=== PATIENT | female | born 1950 | race Caucasian/White ===

== ENCOUNTER → 2019-11-13 11:47 | Outpatient (BNVA) | payer MEDICARE, BC, SELFPAY | PROVIDERS: Visit Provider Family Medicine | DX: B19.20 Unspecified viral hepatitis C without hepatic coma (principal); K74.69 Other cirrhosis of liver; Z13.220 Encounter for screening for lipoid disorders; Z13.6 Encounter for screening for cardiovascular disorders; D69.6 Thrombocytopenia, unspecified; J44.9 Chronic obstructive pulmonary disease, unspecified; Z13.1 Encounter for screening for diabetes mellitus; I50.32 Chronic diastolic (congestive) heart failure; I11.0 Hypertensive heart disease with heart failure; I10 Essential (primary) hypertension; G45.9 Transient cerebral ischemic attack, unspecified | CPT/HCPCS: 80053; 80061; 82105; 83036; 85025 ==

== ENCOUNTER → 2020-04-25 11:13 | Outpatient (BNVA) | payer BC, SELFPAY | PROVIDERS: Visit Provider Emergency Medicine | DX: D69.6 Thrombocytopenia, unspecified (principal); G45.9 Transient cerebral ischemic attack, unspecified; R29.90 Unspecified symptoms and signs involving the nervous system | CPT/HCPCS: 80053; 80061; 83036; 83880; 85025; 85730 ==

== ENCOUNTER → 2020-04-26 10:45 | Outpatient (BNVA) | payer BC, SELFPAY | PROVIDERS: Visit Provider Emergency Medicine | DX: D69.6 Thrombocytopenia, unspecified (principal); G45.9 Transient cerebral ischemic attack, unspecified; R29.90 Unspecified symptoms and signs involving the nervous system; R73.9 Hyperglycemia, unspecified | CPT/HCPCS: 83036 ==

== ENCOUNTER 2020-05-22 06:57 | Outpatient (CLI) | payer MEDICARE, SELFPAY ==
--- NOTE | 2020-05-22 07:15 | USCV_ITS ---
Morena Valente Age: 69 Gender: F : 1950 Exam Date: 05/22/2020 07:18 Ordering Phys: Roly Prince Technologist: Mayela Patterson [place]am [place] [facility] [place]: TIA RECENTLY Risk Factors: Unknown Previous Vascular Surgery: None Right Brachial BP: / Left Brachial BP: / Right Left Velocity (cm/s) Spectral Plaque Velocity (cm/s) Spectral Plaque Syst/Diast Broadening Syst/Diast Broadening 71.80/ 13.10 Prox CCA 77.20 / 13.50 45.30/ 17.20 Mid CCA 46.90 / 14.20 47.90/ 9.60 Distal CCA 46.20 / 11.90 78.10/ 12.60 Prox ICA 59.80 / 14.00 66.40/ 15.10 Mid ICA 72.00 / 22.00 61.30/ 15.10 Distal ICA 73.90 / 17.60 89.90 ECA 75.20 1.72 ICA/CCA 1.57 Antegrade Vertebral Antegrade 29.10/ 8.50 cm/s 43.50/ 12.10 cm/s Tri Subclavian Tri 82.90 152.6 0 CONCLUSIONS Right ICA stenosis <50%. Left ICA stenosis <50%. Tortous left ICA Normal antegrade Doppler flow noted in the right vertebral artery. Normal antegrade Doppler flow noted in the left vertebral artery. Clifton Duran MD (Electronically Signed) Final Date: 22 May 2020 12:48 S
--- NOTE | 2020-05-22 08:00 | CT_ITS ---
WS: [id number] CT scan of the head, 05/22/2020 Clinical Data: stroke like symptoms earlier this week. hx of TIA Comparison: None. DLP: 993.[address] scans at [facility] use at least one of these dose optimization techniques: automat ed exposure control; mA and/or kV adjustment per patient size (includes targeted exams where dose is matched to clinical indication); or iterative reconstruction. Findings: The ventricular system is modestly enlarged without shift. No recent infarct or hemorrhage is seen. T here are no abnormal intracerebral masses. The cerebellum and brainstem are not remarkable. Bony windows of the skull and skull base show no fractures or erosions. The mastoid air cells, sports marketing internship al auditory canals, sella turcica, intraorbital contents, and paranasal sinuses are unremarkable. CT/CT head wo con* [id number] Impression: Negative CT scan of the head
== END 2020-05-22 06:58 | disposition home or self-care (01) ==
LOC: US 06:57
PROVIDERS: PCP Family Medicine; Visit Provider Emergency Medicine
DX: R29.90 Unspecified symptoms and signs involving the nervous system (principal); Z86.73 Personal history of transient ischemic attack (TIA), and cerebral infarction without residual deficits; I65.23 Occlusion and stenosis of bilateral carotid arteries
CPT/HCPCS: 70450; 93880

== ENCOUNTER → 2020-05-27 14:07 | Outpatient (BNVA) | payer MEDICARE, SELFPAY | PROVIDERS: PCP Family Medicine; Visit Provider Family Medicine | DX: I10 Essential (primary) hypertension (principal); I50.32 Chronic diastolic (congestive) heart failure; D69.6 Thrombocytopenia, unspecified; K74.69 Other cirrhosis of liver; B19.20 Unspecified viral hepatitis C without hepatic coma; D70.8 Other neutropenia; G45.9 Transient cerebral ischemic attack, unspecified; L43.8 Other lichen planus | CPT/HCPCS: 85007; 85027 ==

== ENCOUNTER → 2020-05-28 14:07 | Outpatient (BNVA) | payer MEDICARE, SELFPAY | PROVIDERS: PCP Family Medicine; Visit Provider Family Medicine | DX: I50.32 Chronic diastolic (congestive) heart failure (principal); D69.6 Thrombocytopenia, unspecified; D72.819 Decreased white blood cell count, unspecified; K74.69 Other cirrhosis of liver; B19.20 Unspecified viral hepatitis C without hepatic coma; D70.8 Other neutropenia; G45.9 Transient cerebral ischemic attack, unspecified; L43.8 Other lichen planus; I10 Essential (primary) hypertension | CPT/HCPCS: 80500 ==

== ENCOUNTER 2020-06-26 09:08 | Outpatient (CLI) | payer MEDICARE, SELFPAY ==
[2020-06-26 09:51] LABS: Basophils % 0.7 %; Eosinophils # 0.2 10^3/uL (0.0-0.8); Eosinophils % 5.3 %; Hematocrit 37.6 % (37.0-47.0); Lymphocytes # 1.1 10^3/uL (0.8-4.8); Lymphocytes % 37.9 %; Mean Corpuscular HGB Conc 34.6 g/dL (30.0-36.0); Mean Corpuscular Hemoglobin 33.1 pg (28.0-34.0); Mean Corpuscular Volume 95.7 fL (81-99); Mean Platelet Volume 9.6 fL (7.4-10.4); Monocytes # 0.2 10^3/uL (0.2-0.9); Monocytes % 7.6 %; Neutrophils # 1.46 10^3/uL (1.8-7.7); Neutrophils % 48.5 %; Nucleated Red Blood Cells % 0 %; Platelet Count 55 10^3/cmm (130-400); Red Blood Count 3.93 10^6/uL (4.1-5.3); Red Cell Distribution Width 13.3 % (12.1-15.1)
--- NOTE | 2020-06-26 13:42 | ONC CON_ITS ---
Dr. Phillips New Patient Note Patient: Morena Valente Unit #: [id number]: 1950 Dicatated By: Gilbert Phillips M.D.Date of Visit: Jun 26, 2020 Onc MED New Patient/Consult Referring Physician: Yocasta Davila Dr., M.D. History of Present Illness: 'Ms. Morena Valente, is a 69-year-old female with a history of hepatitis C, as per patient she was diagnosed at age 15 probably due to IV drug exposure or other high risk, initially, as per patient she was monitored until in [address] Blanchard at that time she was treated for hepatitis C, as per patient her follow-up lab confirmed that she was clear of hepatitis C. As per patient she was also diagnosed with liver cirrhosis several years ago and she was also told about low blood counts many years ago but recently on May 27, 2020 for follow-up CBC showed white blood count 3.3 hemoglobin 12.9 hematocrit 38.5 platelets 64,000, she was told now her white blood count is also dropping and thus ,she was sent to hematology for evaluation. Patient denies any nosebleed or gum bleed, denies any hemoptysis or hematemesis, denies any melena or hematochezia, denies any dark-colored stools, denies any petechia or ecchymosis. Patient denies any excessive alcohol use. Denies any new medication. Denies any night sweats denies any weight loss denies any recurrent fever. As per patient she underwent EGD and colonoscopy in 2015, done by Dr. Blanchard and she was told it was unremarkable. Patient has history of splenomegaly, as per follow-up sonogram done on July 23, 2019 which showed patient had cirrhotic liver and splenomegaly, likely due to hepatic cirrhosis. Past Medical History: Ms. Valente's medical history consists of chronic liver failure, cirrhosis, congestive heart failure, depression, hepatitis C, hypertension, liver lesion, and osteoarthritis. Past Surgical History: Ms. Valente's surgical/procedural history consists of cataract excision, left knee replacement, hysterectomy in 1985, and tonsillectomy in 1959. Medications: Aspirin Adult Low Dose 1 Tablet (of 81 mg) Tablet, enteric coated Oral daily, [facility] Fish Oil 1 - 2 Capsule (of 1000 mg) Oral q 7 days, Eye Health 1 - 2 Capsule Oral q 7 to 14 days PRN, Furosemide 1 Tablet (of 20 mg) Oral daily PRN, hydroCHLOROthiazide 1 Tablet (of 25 mg) Oral daily, Multivitamin 1 Tablet Oral q 7 days, Potassium Chloride ER 1 Tablet (of 10 meq) Tablet, controlled release Oral daily, Vitamin C 1 - 2 Capsule (of 500 mg) Oral q 7 to 14 days PRN, Vitamin D3 1 - 2 Tablet Oral q 7 to 14 days PRN Allergies: Morphine Sulfate Social History: Ms. Valente is . Ms. Valente has never smoked. She is an active drinker. pt states she has a glass of wine in the evening 3 to 4 times a week and one to two oz of tequlia a week. Family History: Ms. Valente's mother at age 75: heart attack. Ms. Valente's father at age 75: heart disease. Ms. Valente has 1 sister who is : hemorrhage. Review Of Symptoms: Review of Systems is not available for this patient. Vital Signs: Performed on Jun 26, 2020 11:06: 0, 33.33 (HIGH), 1.96 sq.m, 64.50 in, 97 %, 77 /min, 24 /min, 148/65 mm(hg) (HIGH), 98.1 F (LOW), and 197.2 lbs (HIGH). Performance Status: 0 - Fully active, able to carry on all predisease activities without restrictions. (ECOG) Physical Examination: ENMT - No mouth sores, no thrush, no jaundice, Respiratory - Lungs are clear to auscultation, Cardiovascular - Regular rate and rhythm of heart, Abdomen - Soft, bowel sounds present, obese, Extremities - No visible edema or petechiae. 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 Or medications. Or autoimmune Hepatic cirrhosis/hepatitis C, was treated for hepatitis C in 2016 Splenomegaly as per sonogram done on July 23, 2019 Congestive heart failure Oral lichen planus Primary osteoarthritis of right knee status post knee replacement Plan: Discussed with patient regarding her labs from today showed white blood count 3000, hemoglobin 13 hematocrit 37.6 platelets 55,000 ANC 1460 and etiology of bicytopenia, could be multifactorial including but not limited to splenic sequestration as patient has history of splenomegaly due to hepatic cirrhosis other possibility could be considering her age underlying myelodysplasia or medication or reactivation of hepatitis C or autoimmune disorder. Today's CBC shows no significant change when compared with labs from May 27, 2020 although some drop in her platelet count white blood cell, but we will continue to monitor, if there is a further drop, will consider, B12 level, folate and copper level as deficiency of any them can cause cytopenias. If normal,Will consider bone marrow evaluation to rule out underlying myelodysplasia, if bone marrow response is appropriate, will also request Dr. Blanchard to evaluate her for hepatitis C reactivation as that can also cause worsening of bicytopenia. Patient return to clinic in 1 month with CBC and follow-up abdominal sonogram with special attention to spleen size. Patient was advised in case she has any episode of bleeding she need to call us and she was also advised not to take aspirin like meds or NSAIDs and avoid trauma. Signed By: Gilbert Phillips M.D. <<Signature on File>>
== END 2020-06-26 09:09 | disposition home or self-care (01) ==
LOC: ONCMED 09:13
PROVIDERS: PCP Family Medicine; Visit Provider Internal Medicine Hematology & Oncology
DX: D75.89 Other specified diseases of blood and blood-forming organs (principal); K74.60 Unspecified cirrhosis of liver; Z86.19 Personal history of other infectious and parasitic diseases; I50.9 Heart failure, unspecified; L43.8 Other lichen planus; M17.11 Unilateral primary osteoarthritis, right knee; Z96.651 Presence of right artificial knee joint
CPT/HCPCS: 36415; 85025; 99203

== ENCOUNTER 2020-07-29 09:57 | Outpatient (CLI) | payer MEDICARE, SELFPAY ==
--- NOTE | 2020-07-29 10:01 | US_ITS ---
WS: [id number] ULTRASOUND ABDOMEN CLINICAL INFORMATION: THROMBOCYOPENA/LEUKOPENIA COMPARISON: None. FINDINGS: Exam somewhat limited by bowel gas. Liver Size: Normal. Craniocaudal length: 11.5 cm. Echogenicity: Coarse Surface nodularity: Lobulated Mass (size and location): None. Bile ducts Intrahepatic ducts: Normal. Common bile duct diameter: 0.5 cm. Gallbladder Normal. Gallstones: None. Gallbladder sludge: None. Gallbladder wall thickening: None. Pericholecystic fluid: None. Sonographic Yin sign: Absent. Pancreas Normal as visualized. Spleen Splenomegaly: Enlarged Craniocaudal length: 17.9 cm. Right kidney: Normal. Hydronephrosis: None. Size: 9.6 cm x 4.9 cm x 4.8 cm Left kidney: Normal. Hydronephrosis: None. Size: 11.5 cm x 4.1 cm x 3.8 cm. Abdominal aorta and IVC Visualized portions are normal. Ascites: None. US/US abdomen complete* [id number] IMPRESSION: 1. Cirrhotic configuration to the liver with coarse echotexture. Prominent spl enomegaly. 2. Gastrosplenic varices. 3. Normal gallbladder and common bile duct. 4. No hydronephrosis in either kidney.
== END 2020-07-29 09:58 | disposition home or self-care (01) ==
LOC: US 10:00 → ONCMED 11:14
PROVIDERS: PCP Family Medicine; Visit Provider Internal Medicine Hematology & Oncology
DX: D69.6 Thrombocytopenia, unspecified (principal); D72.819 Decreased white blood cell count, unspecified; R16.1 Splenomegaly, not elsewhere classified; I86.4 Gastric varices
CPT/HCPCS: 76700

== ENCOUNTER 2020-08-05 05:48 | Outpatient (CLI) | payer MEDICARE, SELFPAY ==
[2020-08-05 13:20] LABS: Eosinophils # 0.2 10^3/uL (0.0-0.8); Eosinophils % 6.1 %; Hematocrit 38.3 % (37.0-47.0); Hemoglobin 13.3 g/dL (11.5-15.3); Lymphocytes # 1.1 10^3/uL (0.8-4.8); Lymphocytes % 38.2 %; Mean Corpuscular HGB Conc 34.7 g/dL (30.0-36.0); Mean Corpuscular Hemoglobin 32.6 pg (28.0-34.0); Mean Corpuscular Volume 93.9 fL (81-99); Mean Platelet Volume 9.8 fL (7.4-10.4); Monocytes # 0.3 10^3/uL (0.2-0.9); Monocytes % 8.9 %; Neutrophils # 1.34 10^3/uL (1.8-7.7); Neutrophils % 45.8 %; Nucleated Red Blood Cells % 0 %; Platelet Count 53 10^3/cmm (130-400); Red Blood Count 4.08 10^6/uL (4.1-5.3); White Blood Count 2.9 10^3/uL (4.0-10.0)
== END 2020-08-05 05:49 | disposition home or self-care (01) ==
LOC: ONCMED 05:50
PROVIDERS: PCP Family Medicine; Visit Provider Internal Medicine Hematology & Oncology
DX: D75.89 Other specified diseases of blood and blood-forming organs (principal)
CPT/HCPCS: 36415; 85025

== ENCOUNTER 2020-08-08 05:34 | Outpatient (CLI) | payer MEDICARE, SELFPAY ==
--- NOTE | 2020-08-08 09:54 | ONC FU_ITS ---
Dr. Phillips follow up note Patient: Morena Valente Unit #: [id number]: 1950 Dicatated By: Gilbert Phillips M.D.Date of Visit:Aug 08, 2020 Onc Med Follow-up/Prog Note History of Present Illness: 'Ms. Morena Valente, is a 69-year-old female with a history of hepatitis C, as per patient she was diagnosed at age 15 probably due to IV drug exposure or other high risk, initially, as per patient she was monitored until in [address] Blanchard at that time she was treated for hepatitis C, as per patient her follow-up lab confirmed that she was clear of hepatitis C. As per patient she was also diagnosed with liver cirrhosis several years ago and she was also told about low blood counts many years ago but recently on May 27, 2020 for follow-up CBC showed white blood count 3.3 hemoglobin 12.9 hematocrit 38.5 platelets 64,000, she was told now her white blood count is also dropping and thus ,she was sent to hematology for evaluation. Patient denies any nosebleed or gum bleed, denies any hemoptysis or hematemesis, denies any melena or hematochezia, denies any dark-colored stools, denies any petechia or ecchymosis. Patient denies any excessive alcohol use. Denies any new medication. Denies any night sweats denies any weight loss denies any recurrent fever. As per patient she underwent EGD and colonoscopy in 2015, done by Dr. Blanchard and she was told it was unremarkable. Patient has history of splenomegaly, as per follow-up sonogram done on July 23, 2019 which showed patient had cirrhotic liver and splenomegaly, likely due to hepatic cirrhosis. Abdominal sonogram done on July 29, 2020 showed cirrhotic configuration to the liver with coarse echotexture. Splenomegaly size 17.9 cm. Gastrosplenic varices. Came for follow-up, denies any specific complaints, no fever chills, no nausea or vomiting, no diarrhea or constipation, no hemoptysis or hematemesis, no melena or hematochezia, no jaundice, no abdominal pain or fullness, no petechia or ecchymosis, no sore throat or dysuria. As per patient she called Dr. Blanchard's office and she was told that her hepatitis C is cured and no further testing is needed. Medications: Aspirin Adult Low Dose 1 Tablet (of 81 mg) Tablet, enteric coated Oral daily, [facility] Fish Oil 1 - 2 Capsule (of 1000 mg) Oral q 7 days, Eye Health 1 - 2 Capsule Oral q 7 to 14 days PRN, Furosemide 1 Tablet (of 20 mg) Oral daily PRN, hydroCHLOROthiazide 1 Tablet (of 25 mg) Oral daily, Multivitamin 1 Tablet Oral q 7 days, Potassium Chloride ER 1 Tablet (of 10 meq) Tablet, controlled release Oral daily, Vitamin C 1 - 2 Capsule (of 500 mg) Oral q 7 to 14 days PRN, Vitamin D3 1 - 2 Tablet Oral q 7 to 14 days PRN Allergies: Morphine Sulfate Review of Systems: Constitutional - Appetite is good and weight is stable. No fever, night sweats, or hot flashes. Energy is fair, ENMT - No sinus congestion/drainage. Positive for mouth sores. No sore throat or difficulty swallowing, Hematologic/Lymphatic - No abnormal bruising or bleeding, Respiratory - No shortness of breath. No cough. No pleuritic pain or hemoptysis, Cardiovascular - No angina pain. Positive for palpitations, Gastrointestinal - No nausea or vomiting. No heartburn or acid reflux. No diarrhea or constipation. No blood in the stool or black stools, Genitourinary (F) - No dysuria or hematuria. Positive for urinary frequency. No urgency or incontinence, Musculoskeletal - No joint or bone pain, Integumentary - , Neurologic - No headache or dizziness. No numbness or tingling. No other focal neurologic symptoms, Psychiatric - Positive for anxiety or depression. Postive for insomnia. Vital Signs: Performed on Aug 08, 2020 08:24 Height - 64.50 in Weight - 192.4 lbs (LOW) BSA - 1.93 sq.m BMI - 32.52 (HIGH) Temperature - 97.7 F (LOW) Pulse - 74 /min Respiration - 18 /min BP - 147/81 mm(hg) (HIGH) O2 Sat - 96 % Pain - 0 Performance Status: 1 - No physically strenuous activity, but ambulatory and able to carry out light or sedentary work (e.g. office work, light house work). (ECOG) Physical Examination: ENMT - No mouth sores, no thrush, no jaundice, Respiratory - Lungs are clear to auscultation, Cardiovascular - Regular rate and rhythm of heart, Abdomen - Soft, bowel sounds present, Extremities - No visible edema or rash. 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 Or medications. Or autoimmune Hepatic cirrhosis/hepatitis C, was treated for hepatitis C in 2016 Splenomegaly as per sonogram done on July 23, 2019, Repeat ultrasound abdomen done on July 29, 2020 confirmed cirrhotic configuration to the liver and splenomegaly, size 17.9 cm Congestive heart failure Oral lichen planus Primary osteoarthritis of right knee status post knee replacement Plan: Discussed with patient regarding her labs white blood count 2.9 hemoglobin 13.3 hematocrit 38.3 platelets 53,000 compared to 55,000 on June 26, 2020 and follow-up abdominal sonogram reconfirmed splenomegaly and cirrhotic liver Clinically, patient is doing well with no signs symptom suggestive of recurrent infections or bleeding her follow-up labs shows hemoglobin normal range but persistent mild/moderate bicytopenia e.g. leukopenia and thrombocytopenia but stable. And etiology of persistent bicytopenia probably due to splenic sequestration due to splenomegaly due to portal hypertension due to hepatic cirrhosis but considering her age underlying myelodysplasia cannot be ruled out. We will continue to monitor her blood counts and if there is a worsening, may consider bone marrow evaluation to rule out concomitant presence of MDS. As her sonogram showed patient had hepatic cirrhosis and gastrosplenic varices and patient has never seen pump press operator, so, at patient request, we will refer her to pump press operator at [facility] in [place] in the meantime we will consider hepatitis panel to rule out reactivation of hepatitis C although less likely and also check alpha-fetoprotein and hepatitis C load and then she will return to clinic in 2 months with CBC Patient was told in case she has any evidence of gross bleeding or recurrent infections she need to call us otherwise we will see her as scheduled Signed By: Gilbert Phillips M.D. <<Signature on File>>
[2020-08-08 13:22] LABS: Hepatitis A Antibody IgM Non-Reactive (Nonreactive); Hepatitis B Core AB, Total Reactive (Nonreactive); Hepatitis B Surface AB 465.7 (0-8.5); Hepatitis B Surface Antigen Non-Reactive (Nonreactive); Hepatitis C Virus Antibody Reactive (Nonreactive)
[2020-08-08 17:18] LABS: Tumor Marker Alpha Fetoprotein 4.2 ng/mL (0-8.3)
[2020-08-11 13:53] LABS: HEP C RNA Viral Load Quant <1.18 NOT DETECTED Log IU/mL (NOT DETECTED); HEP C RNA Viral Load Quant <15 NOT DETECTED IU/mL (NOT DETECTED)
== END 2020-08-08 05:35 | disposition home or self-care (01) ==
LOC: ONCMED 05:39
PROVIDERS: PCP Family Medicine; Visit Provider Internal Medicine Hematology & Oncology
DX: D75.89 Other specified diseases of blood and blood-forming organs (principal); Z11.59 Encounter for screening for other viral diseases; Z86.19 Personal history of other infectious and parasitic diseases; K74.69 Other cirrhosis of liver; R16.1 Splenomegaly, not elsewhere classified; I50.9 Heart failure, unspecified; L43.9 Lichen planus, unspecified; M17.11 Unilateral primary osteoarthritis, right knee; I86.4 Gastric varices; Z96.651 Presence of right artificial knee joint
CPT/HCPCS: 36415; 82105; 86705; 86706; 86709; 86803; 87340; 87522; 99214

== ENCOUNTER 2020-11-05 09:18 | Outpatient (CLI) | payer MEDICARE, SELFPAY ==
[2020-11-05 09:54] LABS: Basophils % 0.6 %; Eosinophils # 0.2 10^3/uL (0.0-0.8); Eosinophils % 5.7 %; Hemoglobin 12.3 g/dL (11.5-15.3); Lymphocytes # 0.9 10^3/uL (0.8-4.8); Mean Corpuscular HGB Conc 34.2 g/dL (30.0-36.0); Mean Corpuscular Hemoglobin 32.8 pg (28.0-34.0); Mean Platelet Volume 9.4 fL (7.4-10.4); Monocytes # 0.4 10^3/uL (0.2-0.9); Monocytes % 10.5 %; Neutrophils # 1.81 10^3/uL (1.8-7.7); Neutrophils % 54.6 %; Nucleated Red Blood Cells % 0 %; Platelet Count 52 10^3/cmm (130-400); Red Blood Count 3.75 10^6/uL (4.1-5.3); Red Cell Distribution Width 14.5 % (12.1-15.1); White Blood Count 3.3 10^3/uL (4.0-10.0)
[2020-11-05 10:28] LABS: Alanine Aminotransferase 20 U/L (0-33); Albumin Level 2.9 g/dL (3.5-5.2); Alkaline Phosphatase 164 IU/L (35-105); Anion Gap 8.8 (5-19); Aspartate Amino Transferase 57 U/L (0-32); Blood Urea Nitrogen 10 mg/dL (8-23); Calcium 8.3 mg/dL (8.5-10.5); Carbon Dioxide 26 mmol/L (22-29); Chloride 105 mmol/L (98-107); Globulin 3.3 g/dL (1.3-4.6); Glucose 86 mg/dL (65-115); Osmolality Calculated 280 mOsm/kg (285-295); Potassium 3.8 mmol/L (3.5-5.1); Sodium 136 mmol/L (136-145); Total Bilirubin 2.7 mg/dL (0.15-1.2); Total Protein 6.2 g/dL (6.6-8.7)
--- NOTE | 2020-11-16 20:42 | ONC FU_ITS ---
[facility] Patient Note Patient: Morena Valente Unit #: [id number]: 1950 Dictated By: Rosemarie FloresDate of Visit: Nov 05, 2020 Onc MED Follow-Up/Prog Note Chief Complaint: Low blood counts History of Present Illness: 'Ms. Morena Valente, is a 69-year-old female with a history of hepatitis C, as per patient she was diagnosed at age 15 probably due to IV drug exposure or other high risk, initially, as per patient she was monitored until in [address] Blanchard at that time she was treated for hepatitis C, as per patient her follow-up lab confirmed that she was clear of hepatitis C. As per patient she was also diagnosed with liver cirrhosis several years ago and she was also told about low blood counts many years ago but recently on May 27, 2020 for follow-up CBC showed white blood count 3.3 hemoglobin 12.9 hematocrit 38.5 platelets 64,000, she was told now her white blood count is also dropping and thus ,she was sent to hematology for evaluation. Patient denies any nosebleed or gum bleed, denies any hemoptysis or hematemesis, denies any melena or hematochezia, denies any dark-colored stools, denies any petechia or ecchymosis. Patient denies any excessive alcohol use. Denies any new medication. Denies any night sweats denies any weight loss denies any recurrent fever. As per patient she underwent EGD and colonoscopy in 2015, done by Dr. Blanchard and she was told it was unremarkable. Patient has history of splenomegaly, as per follow-up sonogram done on July 23, 2019 which showed patient had cirrhotic liver and splenomegaly, likely due to hepatic cirrhosis. Abdominal sonogram done on July 29, 2020 showed cirrhotic configuration to the liver with coarse echotexture. Splenomegaly size 17.9 cm. Gastrosplenic varices. As per patient she called Dr. Blanchard's office and she was told that her hepatitis C is cured and no further testing is needed. Mrs Valente has been following with Dr Phillips regarding low blood counts , which reviewing her flowsheet has been neutropenia and thrombocytopenia. She has not had anemia on her flowsheet as far back as June 26, 2020. Her platelet count remained stable in the 52-55,000 range. Her neutropenia has been 13 100-18 100 today. She has not had any signs of infection. She denies any fever or chills. She has not tested Covid positive nor has she had any Covid vaccine. She states that she had symptoms 6 to 8 weeks ago that could have been suggestive of Covid states states that she was basically as severe headache that lasted a couple days and then resolved on its own. She states she was tired but did not have a cough or fever. Her only concern today is that she has had some intermittent left quadrant pain in my spleen area . She states it swells sometimes and then goes away. Currently it is in proved. She denies any bruising or bleeding. She denies any bowel or bladder problems. She denies any neuropathy. She denies any jaundice. She states she is eating good and overall feels pretty good except intermittent spleen pain . Her ECOG is 1. Past Medical History: Chronic liver failure Cirrhosis Congestive heart failure Depression Hepatitis C Hypertension Liver lesion Osteoarthritis Past Surgical History: Cataract excision Left knee replacement Hysterectomy in 1985 Tonsillectomy in 1959 Allergies: Morphine Sulfate Medications: Aspirin Adult Low Dose 1 Tablet (of 81 mg) Tablet, enteric coated Oral daily [facility] Fish Oil 1 - 2 Capsule (of 1000 mg) Oral q 7 days Eye Health 1 - 2 Capsule Oral q 7 to 14 days PRN Furosemide 1 Tablet (of 20 mg) Oral daily PRN hydroCHLOROthiazide 1 Tablet (of 25 mg) Oral daily Multivitamin 1 Tablet Oral q 7 days Potassium Chloride ER 1 Tablet (of 10 meq) Tablet, controlled release Oral daily Vitamin C 1 - 2 Capsule (of 500 mg) Oral q 7 to 14 days PRN Vitamin D3 1 - 2 Tablet Oral q 7 to 14 days PRN Family History: Ms. Valente's mother at age 75: heart attack. Ms. Valente's father at age 75: heart disease. Ms. Valente has 1 sister who is : hemorrhage. Social History: Ms. Valente is . Ms. Valente has never smoked. She is an active drinker. pt states she has a glass of wine in the evening 3 to 4 times a week and one to two oz of tequlia a week. Review Of Symptoms: Constitutional Denies fevers, chills, night sweats, excessive fatigue or weight loss. Eyes Denies significant visual changes. No diplopia. No amaurosis. ENMT Denies changes in hearing, sore throat, mouth sores, difficulty or changes in swallowing ability, and/or sinus drainage. Hematologic/Lymphatic Denies easy bruising or bleeding. The patient denies any tender or palpable lymph nodes. Breasts Respiratory Denies dyspnea on exertion, chest pain, cough or hemoptysis. Denies orthopnea. Cardiovascular Denies anginal chest pain, palpitations or orthopnea. Gastrointestinal Denies nausea, vomiting, diarrhea, GI bleeding, or constipation. Denies change in bowel habits and/or stool color, no heartburn or early satiety. Genitourinary (F) No hematuria, hesitancy, incontinence, vaginal bleeding, discharge or other problems with urination. Musculoskeletal Denies joint pain, swelling or redness. No decreased range of motion. Integumentary Denies chronic rashes, inflammation, ulcerations or skin changes. Neurologic Denies headache, blurred vision, and no areas of focal weakness or numbness. Normal gait. No sensory problems. Psychiatric Denies insomnia, depression, eufemia or mood swings. Vital Signs: Performed on Nov 05, 2020 11:27 Height - 64.50 in Weight - 195.6 lbs (HIGH) BSA - 1.95 sq.m BMI - 33.06 (HIGH) Temperature - 95.3 F (LOW) Pulse - 77 /min Respiration - 18 /min BP - 146/78 mm(hg) (HIGH) O2 Sat - 97 % Pain - 7 Fatigue - 0,1 - No physically strenuous activity, but ambulatory and able to carry out light or sedentary work (e.g. office work, light house work). (ECOG) Physical Examination: Constitutional Alert, oriented, no acute distress. Skin pink, warm and dry. Head Normocephalic; atraumatic. Eyes Conjunctivae and sclerae are clear and without icterus. Pupils are reactive and equal. Neck Supple without masses or thyromegaly. No jugular venous distension. Hematologic/Lymphatic No petechiae or purpura. No tender or palpable lymph nodes in the cervical or supraclavicular areas. Respiratory Lungs are clear to auscultation without rhonchi or wheezing. Cardiovascular Regular rate and rhythm of heart without murmurs,clicks, gallops or rubs. Abdomen Non-tender, non-distended, no masses or ascites. Good bowel sounds noted in all quads. No guarding or rebound tenderness. No pulsatile masses. Slight tenderness in left upper quad- but no worse than normal per patient. Back/Spine Non-tender to palpation. Extremities No visible deformities, no cyanosis, clubbing or edema. Musculoskeletal No tenderness or swelling, normal range of motion without obvious weakness. Integumentary No rashes or lesions. Neurologic No sensory or motor deficits, normal cerebellar function, normal gait. Psychiatric Alert and oriented times three. Coherent speech. Verbalizes understanding of our discussions today. Laboratory:Test performed on Nov 05, 2020 09:32 Sodium 136 mmol/L Potassium 3.8 mmol/L Chloride 105 mmol/L CO2 26 mmol/L Anion Gap 8.8 BUN 10 mg/dL Creatinine 0.4 mg/dL Cr Clearance (Est) 178.06 mL/min Glucose 86 mg/dL Osmolality - Calculated 280 mOsm/kg Calcium 8.3 mg/dL Protein, Total 6.2 g/dL Albumin 2.9 g/dL Globulin 3.3 g/dL Bilirubin, Total 2.7 mg/dL ALT (SGPT) 20 U/L AST (SGOT) 57 U/L Alkaline Phosphatase 164 IU/L WBC 3.3 10 3/uL RBC 3.75 10 6/uL HGB 12.3 g/dL HCT 36.0 % MCV 96.0 fL MCH 32.8 pg MCHC 34.2 g/dL RDW 14.5 % Platelet Count 52 10 3/cmm MPV 9.4 fL Neutrophils 1.81 10 3/uL Lymphocytes 0.9 10 3/uL Monocytes 0.4 10 3/uL Eosinophils 0.2 10 3/uL Basophils 0.0 10 3/uL Neutrophil % 54.6 % Lymphocyte % 28.0 % Monocyte % 10.5 % Eosinophil % 5.7 % Basophils % 0.6 % NRBC % 0 % Test performed on Aug 08, 2020 09:45 AFP 4.2 ng/mL Hepatitis A Ab, IgM Non-Reactive Hepatitis B Core Ab, Total Reactive Hepatitis B Surf Antigen Non-Reactive Hepatitis B Surface Ab 465.7 STATUS of IMMUINITY Inconsistent with Immunity 0.0 - 8.5 mIU/mL Consistent with Immunity >8.5 mIU/mL Hepatitis C Ab Reactive Test performed on Jul 29, 2020 00:00 Manual Diff NO SPECIMEN OF [id number] Impression: Bicytopenia, etiology could be multifactorial, but most likely due to splenic sequestration, patient has splenomegaly due to hepatic cirrhosis due to hepatitis C, other possibility could be reactivation of hepatitis C or, considering her age underlying myelodysplasia in addition to splenic sequestration cannot be ruled out. Or medications. Or autoimmune Hepatic cirrhosis/hepatitis C, was treated for hepatitis C in 2016 Splenomegaly as per sonogram done on July 23, 2019, Repeat ultrasound abdomen done on July 29, 2020 confirmed cirrhotic configuration to the liver and splenomegaly, size 17.9 cm Congestive heart failure Oral lichen planus Primary osteoarthritis of right knee status post knee replacement Plan: PROBLEMS ADDRESSED TODAY 1. Neutropenia and thrombocytopenia A. Today's labs reviewed in detail discussed with Mrs. Valente and a copy was given to her. WBC 3.3, hemoglobin 12.3, platelets 52,000 ANC 1810. Potassium 3.8 creatinine 0.4 random glucose 86. B. Per Dr Phillips's [facility] office note etiology of persistent bicytopenia probably due to splenic sequestration due to splenomegaly due to portal hypertension due to hepatic cirrhosis but considering her age underlying myelodysplasia cannot be ruled out. We will continue to monitor her blood counts and if there is a worsening, may consider bone marrow evaluation to rule out concomitant presence of MDS . 2. History of Hepatitis C A. CMP from today reports: total bilirubin 2.7 which is chronically elevated for her ALT is 20 AST is 57 alk phos is 164. Her last AFP on 08/08/2020 was 4.2. She did have a hepatitis panel on 08/08/2020 which showed nonreactive for hep B surface antigen and hep B surface antibody was reported at 465.7. Hep BC total shows reactive and hep C AB is reactive. She did not have analysis of the PCR quantitative. B. Dr Caraballo's last office note reports As her sonogram showed patient had hepatic cirrhosis and gastrosplenic varices and patient has never seen territory service representative so, at patient request, we will refer her to territory service representative at [facility] in [place]. In the meantime we will consider hepatitis panel to rule out reactivation of hepatitis C although less likely and also check alpha-fetoprotein and hepatitis C load and then she will return to clinic in 2 months with CBC Patient was told in case she has any evidence of gross bleeding or recurrent infections she need to call us otherwise we will see her as scheduled . Mrs Valente has not been evaluated with up her pathologist as she states there is not 1 in [place] and would require to go to [facility] and she is not doing at this time. 3. Follow-up plan A. we will plan to see Mrs. Valente back in 1 month with CBC CMP for monitoring of her neutropenia and thrombocytopenia. B. She has been encouraged to contact us in interim should she have any evidence of jaundice or any worsening of her abdominal pain. She is also advised to present to the emergency room for further follow-up if she does have problems. C. She was encouraged to have follow-up with Dr. Blanchard also she has questions regarding her hepatitis as she does not want to pursue referral to territory service representative at this time. Signed By: Rosemarie Flores-MIKAYLA, AOERICKAP Gilbert Phillips MD <<Signature on File>>
== END 2020-11-05 09:19 | disposition home or self-care (01) ==
LOC: ONCMED 09:21
PROVIDERS: PCP Family Medicine; Visit Provider Nurse Practitioner
DX: D70.9 Neutropenia, unspecified (principal); D69.6 Thrombocytopenia, unspecified; K74.60 Unspecified cirrhosis of liver; R16.1 Splenomegaly, not elsewhere classified; I86.4 Gastric varices; Z86.19 Personal history of other infectious and parasitic diseases
CPT/HCPCS: 36415; 80053; 85025; 99214

== ENCOUNTER 2020-12-15 11:47 | Outpatient (CLI) | payer MEDICARE, SELFPAY ==
[2020-12-15 12:35] LABS: Basophils % 0.4 %; Eosinophils # 0.1 10^3/uL (0.0-0.8); Eosinophils % 1.4 %; Hematocrit 36.8 % (37.0-47.0); Hemoglobin 12.5 g/dL (11.5-15.3); Lymphocytes % 12.8 %; Mean Platelet Volume 9.1 fL (7.4-10.4); Monocytes % 12.3 %; Neutrophils # 5.54 10^3/uL (1.8-7.7); Neutrophils % 71.8 %; Nucleated Red Blood Cells % 0 %; Platelet Count 81 10^3/cmm (130-400); Red Blood Count 3.68 10^6/uL (4.1-5.3); Red Cell Distribution Width 17.2 % (12.1-15.1); White Blood Count 7.7 10^3/uL (4.0-10.0)
[2020-12-15 13:04] LABS: Alanine Aminotransferase 53 U/L (0-33); Albumin Level 2.4 g/dL (3.5-5.2); Alkaline Phosphatase 210 IU/L (35-105); Anion Gap 11.5 (5-19); Aspartate Amino Transferase 192 U/L (0-32); Blood Urea Nitrogen 21 mg/dL (8-23); Calcium 8.4 mg/dL (8.5-10.5); Carbon Dioxide 28 mmol/L (22-29); Chloride 95 mmol/L (98-107); Glucose 125 mg/dL (65-115); Osmolality Calculated 276 mOsm/kg (285-295); Potassium 3.5 mmol/L (3.5-5.1); Sodium 131 mmol/L (136-145); Total Protein 5.4 g/dL (6.6-8.7)
[2020-12-15 13:17] LABS: Total Bilirubin 25.4 mg/dL (0.15-1.2)
--- NOTE | 2020-12-15 17:46 | ONC FU_ITS ---
Dr. Phillips follow up note Patient: Morena Valente Unit #: [id number]: 1950 Dicatated By: Gilbert Phillips M.D.Date of Visit:Dec 15, 2020 Onc Med Follow-up/Prog Note History of Present Illness: 'Ms. Morena Valente, is a 70-year-old female with a history of hepatitis C, as per patient she was diagnosed at age 15 probably due to IV drug exposure or other high risk, initially, as per patient she was monitored until in [address] Blanchard at that time she was treated for hepatitis C, as per patient her follow-up lab confirmed that she was clear of hepatitis C. As per patient she was also diagnosed with liver cirrhosis several years ago and she was also told about low blood counts many years ago but recently on May 27, 2020 for follow-up CBC showed white blood count 3.3 hemoglobin 12.9 hematocrit 38.5 platelets 64,000, she was told now her white blood count is also dropping and thus ,she was sent to hematology for evaluation. Patient denies any nosebleed or gum bleed, denies any hemoptysis or hematemesis, denies any melena or hematochezia, denies any dark-colored stools, denies any petechia or ecchymosis. Patient denies any excessive alcohol use. Denies any new medication. Denies any night sweats denies any weight loss denies any recurrent fever. As per patient she underwent EGD and colonoscopy in 2015, done by Dr. Blanchard and she was told it was unremarkable. Patient has history of splenomegaly, as per follow-up sonogram done on July 23, 2019 which showed patient had cirrhotic liver and splenomegaly, likely due to hepatic cirrhosis. Abdominal sonogram done on July 29, 2020 showed cirrhotic configuration to the liver with coarse echotexture. Splenomegaly size 17.9 cm. Gastrosplenic varices. As per patient she called Dr. Blanchard's office and she was told that her hepatitis C is cured and no further testing is needed. Came for follow-up, complaining of dark-colored urine for the last 3 to 4 days, diarrhea, light-colored stools, and progressive weakness and fatigue, abdominal pain of 1 week duration, as per , off-and-on confusion and progressive yellowness of both eyes and skin. Patient denies any fever chills, denies any nausea or vomiting, denies any seizure-like activity denies any blurred vision or double vision Medications: Aspirin Adult Low Dose 1 Tablet (of 81 mg) Tablet, enteric coated Oral daily, [facility] Fish Oil 1 - 2 Capsule (of 1000 mg) Oral q 7 days, Eye Health 1 - 2 Capsule Oral q 7 to 14 days PRN, hydroCHLOROthiazide 1 Tablet (of 25 mg) Oral daily, Multivitamin 1 Tablet Oral q 7 days, Potassium Chloride ER 1 Tablet (of 10 meq) Tablet, controlled release Oral daily, Vitamin C 1 - 2 Capsule (of 500 mg) Oral q 7 to 14 days PRN, Vitamin D3 1 - 2 Tablet Oral q 7 to 14 days PRN Allergies: Morphine Sulfate Review of Systems: Review of Systems is not available for this patient. Vital Signs: Performed on Dec 15, 2020 13:06 Height - 64.50 in Weight - 198 lbs (HIGH) BSA - 1.96 sq.m BMI - 33.46 (HIGH) Temperature - 98.5 F Pulse - 88 /min Respiration - 18 /min BP - 146/65 mm(hg) (HIGH) O2 Sat - 91 % (LOW) Pain - 4 Fatigue - 9 Performance Status: 2 - Ambulatory/capable of all self-care, unable to perform any work activities. Up and about more than 50% of waking hours. (ECOG) Physical Examination: ENMT - Dry oral mucosa, no thrush, deep jaundice, Respiratory - Lungs are clear to auscultation, Cardiovascular - Regular rate and rhythm of heart, Abdomen - Soft, bowel sounds present, Nontender, Extremities - No visible edema but jaundice. Lab/Imaging: Test performed on Nov 05, 2020 09:32 Sodium 136 mmol/L Potassium 3.8 mmol/L Chloride 105 mmol/L CO2 26 mmol/L Anion Gap 8.8 BUN 10 mg/dL Creatinine 0.4 mg/dL Cr Clearance (Est) 178.06 mL/min Glucose 86 mg/dL Osmolality - Calculated 280 mOsm/kg Calcium 8.3 mg/dL Protein, Total 6.2 g/dL Albumin 2.9 g/dL Globulin 3.3 g/dL Bilirubin, Total 2.7 mg/dL ALT (SGPT) 20 U/L AST (SGOT) 57 U/L Alkaline Phosphatase 164 IU/L WBC 3.3 10 3/uL RBC 3.75 10 6/uL HGB 12.3 g/dL HCT 36.0 % MCV 96.0 fL MCH 32.8 pg MCHC 34.2 g/dL RDW 14.5 % Platelet Count 52 10 3/cmm MPV 9.4 fL Neutrophils 1.81 10 3/uL Lymphocytes 0.9 10 3/uL Monocytes 0.4 10 3/uL Eosinophils 0.2 10 3/uL Basophils 0.0 10 3/uL Neutrophil % 54.6 % Lymphocyte % 28.0 % Monocyte % 10.5 % Eosinophil % 5.7 % Basophils % 0.6 % NRBC % 0 % Test performed on Aug 08, 2020 09:45 AFP 4.2 ng/mL Hepatitis A Ab, IgM Non-Reactive Hepatitis B Core Ab, Total Reactive Hepatitis B Surf Antigen Non-Reactive Hepatitis B Surface Ab 465.7 STATUS of IMMUINITY Inconsistent with Immunity 0.0 - 8.5 mIU/mL Consistent with Immunity >8.5 mIU/mL Hepatitis C Ab Reactive Test performed on Jul 29, 2020 00:00 Manual Diff NO SPECIMEN OF [id number] Impression: Bicytopenia, etiology could be multifactorial, but most likely due to splenic sequestration, patient has splenomegaly due to hepatic cirrhosis due to hepatitis C, other possibility could be reactivation of hepatitis C or, considering her age underlying myelodysplasia in addition to splenic sequestration cannot be ruled out. Or medications. Or autoimmune Hepatic cirrhosis/hepatitis C, was treated for hepatitis C in 2016 Splenomegaly as per sonogram done on July 23, 2019, Repeat ultrasound abdomen done on July 29, 2020 confirmed cirrhotic configuration to the liver and splenomegaly, size 17.9 cm Congestive heart failure Oral lichen planus Primary osteoarthritis of right knee status post knee replacement Plan: The patient regarding her labs white blood count 7.7 hemoglobin 12.5 hematocrit 36.8 platelets 81,000 compared to 52,000 previously CMP shows sodium 131, bilirubin 25.4 compared to 2.7 on November 05, 2020 ALT 53 compared to 20 previously AST 192 compared to 57 previously alk phos 210 compared to 264 on November 05, 2020 Clinically, patient is in mild to moderate distress due to severe jaundice and abdominal pain and progressive diarrhea and generalized weakness and fatigue, etiology unclear could be extrahepatic etiology or intrahepatic, at this point we will send her to ER for evaluation and further management As far as bicytopenia is concerned, her white blood count has improved which could be due to underlying infection and platelet count has gone up to 81,000 compared to 52,000 with no evidence of gross bleeding. At this point we will send her to emergency room, case was discussed with the ER physician andIf her overall condition improves, patient will return to clinic in a month with CBC Signed By: Gilbert Phillips M.D. <<Signature on File>>
== END 2020-12-15 11:48 | disposition home or self-care (01) ==
LOC: ONCMED 11:52
PROVIDERS: PCP Family Medicine; Visit Provider Internal Medicine Hematology & Oncology
DX: D61.818 Other pancytopenia (principal); R16.1 Splenomegaly, not elsewhere classified; K76.0 Fatty (change of) liver, not elsewhere classified; K74.60 Unspecified cirrhosis of liver; I50.9 Heart failure, unspecified; L43.9 Lichen planus, unspecified; M17.11 Unilateral primary osteoarthritis, right knee; Z96.651 Presence of right artificial knee joint; Z86.19 Personal history of other infectious and parasitic diseases; Z79.899 Other long term (current) drug therapy
CPT/HCPCS: 36415; 80053; 85025; 99214

== ENCOUNTER 2020-12-15 13:53 | Observation (INO) | payer MEDICARE, SELFPAY ==
[2020-12-15 13:58] VITALS: BP 115/66; PULSE 87; RESP 18; TEMP 36.4; O2SAT 96; BMI 32.9
--- NOTE | 2020-12-15 14:28 | US_ITS ---
WS: [id number] ULTRASOUND ABDOMEN LIMITED CLINICAL INFORMATION: abd pain, hyperbilirubinemia COMPARISON: None. FINDINGS: Liver Size: Enlarged Craniocaudal length: 17.4 cm. Echogenicity: Coarse heterogeneous Surface nodularity: Present Mass (size and location): None. Reversed flow in main portal vein consistent with portal venous hypertension Bile ducts Intrahepatic ducts: Normal. Common bile duct diameter: 0.5 cm. Gallbladder Mild gallbladder wall thickening measuring 5.8 Millimeters Gallstones: None. Gallbladder sludge: Trace Pericholecystic fluid: None. Sonographic Yin sign: Absent. Pancreas Normal as visualized. Right kidney: Normal. Hydronephrosis: None. Size: 10.4 cm x 5.6 cm x 4.4 cm. Abdominal aorta and IVC Visualized portions are normal. Ascites: None. US/US gall bladder [id number] IMPRESSION: 1. Hepatomegaly with cirrhotic liver. 2. Reversed flow in the main portal vein consistent with portal venous hyperte nsion 3. Mild gallbladder wall thickening likely due to liver disease. Trace sludge in the gallbladder. 4. Normal right kidney
[2020-12-15] MEDS: ondansetron 2 mg/ML SDV 2 mL 4 MG IVP (15:08)
[2020-12-15] MEDS: sodium chloride 0.9% 1,000 ML 999 ML IV (15:12)
--- NOTE | 2020-12-15 15:15 | ED_ITS ---
HPI - Abdominal Pain General: Chief Complaint: Abdominal Pain Stated Complaint: SENT BY DR JOHNS FOR LIVER TESTS Time Seen by Provider: 12/15/20 14:28 History of Present Illness: HPI narrative: 70-year-old female presents emergency room with complaint of abdominal pain. She was having pain for over a month over the last couple of days she has had increasing fatigue shortness of breath and significant jaundice. Family noticed jaundiced in her she when seen today Dr. Johns today had a T bili of 25. She has a history of splenomegaly with thrombocytopenia. She also has some hepatic disease but she cannot define it well for me. MD elicited complaint: other (Obvious icterus) Pertinent past history: other (Thrombocytopenia, splenomegaly) Onset (ago): day(s) Exacerbating factors: nothing Relieving factors: nothing Associated Symptoms: Reports anorexia, bloating, change in stool character, GI cramping, dysuria, nausea and poor appetite; Denies belching, change in bowel habits, chills, coffee ground emesis, constipation, diarrhea, dyspepsia, excessive flatus, fever(s), heartburn, hematochezia, hematuria, hematemesis, fecal incontinence, loose stools, melena, syncope and vomiting Review of Systems Const: Denies: fever(s) or chills ENMT: Denies: throat pain, ear or mastoid pain, nasal discharge or nasal congestion Card: Denies: syncope Resp: Denies: dyspnea, productive cough or non-productive cough GI: Reports: nausea, bloating, GI cramping and change in stool character; Denies: vomiting, hematemesis, coffee ground emesis, heartburn, diarrhea, constipation, belching, excessive flatus, fecal incontinence, change in bowel habits, hematochezia or melena : Reports: dysuria; Denies: hematuria Skin/Breast: Denies: rash or pruritus PFSH ED PFSH: Medical History Chronic diastolic congestive heart failure 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) Hx of hepatitis C Hyperglycemia Hypertension, benign Oral lichen planus Primary osteoarthritis of right knee Stroke-like episode Thrombocytopenia Surgical History H/O: hysterectomy History of cataract surgery Hx of tonsillectomy Total knee replacement status Family History Sister Heart disease Family/Other Heart disease Social History Smoking and tobacco status: former smoker Alcohol intake: current Alcohol intake frequency: few times a month History of recent travel: No Physical Exam Const: COMMON NORMALS: no acute distress GENERAL APPEARANCE: cooperative and comfortable ORIENTATION/CONSCIOUSNESS: Yes awake, Yes oriented to person, Yes oriented to place and Yes oriented to time HENMT: COMMON NORMALS: normocephalic, atraumatic, hearing grossly normal bilaterally, external ears normal, EAC's normal, TM's normal bilaterally, Normal nasal mucous membranes and turbinates present, moist oral mucous membranes and oropharynx normal HEAD & SCALP: normocephalic and atraumatic NOSE: Normal nasal mucous membranes and turbinates present EXTERNAL EAR: Yes external ears normal EXTERNAL AUDITORY CANAL: EAC's normal TYMPANIC MEMBRANE: TM's normal bilaterally Eye: COMMON NORMALS: Equal, round and reactive pupils present, EOMs intact bilaterally and conjunctivae normal CONJUNCTIVA: Yes conjunctivae normal SCLERA: scleral abnormal Laterality of scleral abnormality: positive bilateral scleral icterus (severe) PUPIL: Yes Equal, round and reactive pupils present Neck/C-Spine: COMMON NORMALS: full ROM, no lymphadenopathy, supple and no JVD Lymph: LYMPHATIC: no lymphadenopathy noted and no lymphedema noted Resp: COMMON NORMALS: normal respiratory effort, No retractions, No use of accessory muscles and clear to auscultation bilaterally AUSCULTATION: clear to auscultation bilaterally Cardio: COMMON NORMALS: no JVD, regular rate, regular rhythm and No murmurs present (Cardio) RATE: regular rate RHYTHM: regular rhythm GI: COMMON NORMALS: Soft to palpation and No hepatosplenomegaly present AUS CULTATION: Yes normoactive bowel sounds PALPATION: Yes Soft to palpation, No Tenderness to palpation present (GI), No Guarding due to palpation present (GI) and Yes No hepatosplenomegaly present Extremity: COMMON NORMALS: normal to inspection, capillary refill normal, no clubbing, cyanosis or edema, no calf tenderness and no pedal edema Neuro: SENSORIUM/ORIENTATION: Yes oriented to person, Yes oriented to place and Yes oriented to time Skin: COMMON NORMALS: no rashes or lesions noted GENERAL SKIN EXAM: no rashes or lesions noted Course Vital Signs: Vital signs: Vital Signs Temperature 97.9 F 12/16/20 19:40 Pulse Rate 82 12/16/20 20:47 Respiratory Rate 17 12/16/20 20:47 Blood Pressure 161/77 12/16/20 19:40 Pulse Oximetry 95 12/16/20 20:47 MDM - Abdominal Pain MDM Narrative: Medical decision making narrative: Patient severely jaundice. Discussed with on-call hepatology at [facility]. They will accept the patient however they do not have a bed available. Were going to put her on observation at our facility until the bed becomes available they think they will have a bed within 24 hours. Patient given be given IV fluids and monitor lab work contact information passed off to the hospitalist in case consultation is needed with hepatology at [place]. Discussed with the patient informed her of the plan she is in agreement. Lab Data: Labs: Lab Results 12/15/20 12/15/20 12/15/20 Range/Units 15:25 15:25 15:25 WBC 7.4 (4.0-10.0) 10^3/ uL RBC 3.38 L (4.1-5.3) 10^6/u L Hgb 11.8 (11.5-15.3) g/dL Hct 34.0 L (37.0-47.0) % MCV 100.6 H (81-99) fL MCH 34.9 H (28.0-34.0) pg MCHC 34.7 (30.0-36.0) g/dL RDW 17.2 H (12.1-15.1) % Plt Count 79 L (130-400) 10^3/c mm MPV 9.8 (7.4-10.4) fL Neut % (Auto) 68.3 % Lymph % (Auto) 16.6 % [place] % (Auto) 11.9 % Eos % (Auto) 1.5 % Baso % (Auto) 0.4 % Neut # (Auto) 5.07 (1.8-7.7) 10^3/u L Lymph # (Auto) 1.2 (0.8-4.8) 10^3/u L [place] # (Auto) 0.9 (0.2-0.9) 10^3/u L Eos # (Auto) 0.1 (0.0-0.8) 10^3/u L Baso # (Auto) 0.0 (0.0-0.1) 10^3/u L Nucleated RBC % (a uto) 0.3 % Nucleated RBCs # 0.0 /100WBC PT (12.1-14.9) SECO NDS INR (0.8-1.2) APTT (23.9-36.7) SECO NDS Sodium 130 L (136-145) mmol/L Potassium 3.6 (3.5-5.1) mmol/L Chloride 94 L (98-107) mmol/L Carbon Dioxide 27 (22-29) mmol/L Anion Gap 12.6 (5-19) BUN 20 (8-23) mg/dL Creatinine 0.2 L (0.5-0.9) mg/dL GFR Calculation Not Reportable Glucose 145 H (65-115) mg/dL Calculated Osmolal ity 275 L (285-295) mOsm/k g Lactic Acid 2.6 H (0.5-2.2) mmol/L Lactic Acid (Sepsi s) (0.5-2.2) mmol/L Calcium 8.3 L (8.5-10.5) mg/dL Magnesium 2.0 (1.7-2.3) mg/dL Total Bilirubin 23.3 H* (0.15-1.2) mg/dL AST 184 H (0-32) U/L ALT 56 H (0-33) U/L Alkaline Phosphata se 215 H (35-105) IU/L Ammonia (11-51) umol/L Total Protein 5.4 L (6.6-8.7) g/dL Albumin 2.4 L (3.5-5.2) g/dL Globulin 3.0 (1.3-4.6) g/dL Lipase 40 (13-60) U/L Urine Color (Yellow) Urine Appearance (CLEAR) Urine pH (5-7) Ur Specific Gravit y (1.005-1.030) Urine Protein (Negative) Urine Glucose (UA) (Normal) Urine Ketones (Negative) Urine Blood (Negative) Urine Nitrate (Negative) Urine Bilirubin (Negative) Urine Urobilinogen (Negative) mg/dL Ur Leukocyte Vanessa ase (Negative) Urine RBC (0-2) /hpf Urine WBC (0-5) /hpf Ur Squamous Epith Cells (0-5) /hpf Amorphous Sediment Urine Bacteria (NONE) /hpf Hyaline Casts /lpf Coarse Granular Ca sts /lpf Serum Ketones (Negative) 12/15/20 12/15/20 12/15/20 Range/Units 15:25 15:25 15:25 WBC (4.0-10.0) 10^3/ uL RBC (4.1-5.3) 10^6/u L Hgb (11.5-15.3) g/dL Hct (37.0-47.0) % MCV (81-99) fL MCH (28.0-34.0) pg MCHC (30.0-36.0) g/dL RDW (12.1-15.1) % Plt Count (130-400) 10^3/c mm MPV (7.4-10.4) fL Neut % (Auto) % Lymph % (Auto) % [place] % (Auto) % Eos % (Auto) % Baso % (Auto) % Neut # (Auto) (1.8-7.7) 10^3/u L Lymph # (Auto) (0.8-4.8) 10^3/u L [place] # (Auto) (0.2-0.9) 10^3/u L Eos # (Auto) (0.0-0.8) 10^3/u L Baso # (Auto) (0.0-0.1) 10^3/u L Nucleated RBC % (a uto) % Nucleated RBCs # /100WBC PT 22.30 H (12.1-14.9) SECO NDS INR 1.88 H (0.8-1.2) APTT 47.8 H (23.9-36.7) SECO NDS Sodium (136-145) mmol/L Potassium (3.5-5.1) mmol/L Chloride (98-107) mmol/L Carbon Dioxide (22-29) mmol/L Anion Gap (5-19) BUN (8-23) mg/dL Creatinine (0.5-0.9) mg/dL GFR Calculation Glucose (65-115) mg/dL Calculated Osmolal ity (285-295) mOsm/k g Lactic Acid (0.5-2.2) mmol/L Lactic Acid (Sepsi s) (0.5-2.2) mmol/L Calcium (8.5-10.5) mg/dL Magnesium (1.7-2.3) mg/dL Total Bilirubin (0.15-1.2) mg/dL AST (0-32) U/L ALT (0-33) U/L Alkaline Phosphata se (35-105) IU/L Ammonia 55 H (11-51) umol/L Total Protein (6.6-8.7) g/dL Albumin (3.5-5.2) g/dL Globulin (1.3-4.6) g/dL Lipase (13-60) U/L Urine Color (Yellow) Urine Appearance (CLEAR) Urine pH (5-7) Ur Specific Gravit y (1.005-1.030) Urine Protein (Negative) Urine Glucose (UA) (Normal) Urine Ketones (Negative) Urine Blood (Negative) Urine Nitrate (Negative) Urine Bilirubin (Negative) Urine Urobilinogen (Negative) mg/dL Ur Leukocyte Vanessa ase (Negative) Urine RBC (0-2) /hpf Urine WBC (0-5) /hpf Ur Squamous Epith Cells (0-5) /hpf Amorphous Sediment Urine Bacteria (NONE) /hpf Hyaline Casts /lpf Coarse Granular Ca sts /lpf Serum Ketones Negative (Negative) 12/15/20 12/15/20 Range/Units 15:59 18:30 WBC (4.0-10.0) 10^3/ uL RBC (4.1-5.3) 10^6/u L Hgb (11.5-15.3) g/dL Hct (37.0-47.0) % MCV (81-99) fL MCH (28.0-34.0) pg MCHC (30.0-36.0) g/dL RDW (12.1-15.1) % Plt Count (130-400) 10^3/c mm MPV (7.4-10.4) fL Neut % (Auto) % Lymph % (Auto) % [place] % (Auto) % Eos % (Auto) % Baso % (Auto) % Neut # (Auto) (1.8-7.7) 10^3/u L Lymph # (Auto) (0.8-4.8) 10^3/u L [place] # (Auto) (0.2-0.9) 10^3/u L Eos # (Auto) (0.0-0.8) 10^3/u L Baso # (Auto) (0.0-0.1) 10^3/u L Nucleated RBC % (a uto) % Nucleated RBCs # /100WBC PT (12.1-14.9) SECO NDS INR (0.8-1.2) APTT (23.9-36.7) SECO NDS Sodium (136-145) mmol/L Potassium (3.5-5.1) mmol/L Chloride (98-107) mmol/L Carbon Dioxide (22-29) mmol/L Anion Gap (5-19) BUN (8-23) mg/dL Creatinine (0.5-0.9) mg/dL GFR Calculation Glucose (65-115) mg/dL Calculated Osmolal ity (285-295) mOsm/k g Lactic Acid (0.5-2.2) mmol/L Lactic Acid (Sepsi s) 2.1 (0.5-2.2) mmol/L Calcium (8.5-10.5) mg/dL Magnesium (1.7-2.3) mg/dL Total Bilirubin (0.15-1.2) mg/dL AST (0-32) U/L ALT (0-33) U/L Alkaline Phosphata se (35-105) IU/L Ammonia (11-51) umol/L Total Protein (6.6-8.7) g/dL Albumin (3.5-5.2) g/dL Globulin (1.3-4.6) g/dL Lipase (13-60) U/L Urine Color [place]ol[place] (Yellow) Urine Appearance Clear (CLEAR) Urine pH 5 (5-7) Ur Specific Gravit y 1.015 (1.005-1.030) Urine Protein Neg (Negative) Urine Glucose (UA) Norm (Normal) Urine Ketones Negative (Negative) Urine Blood 3+ H (Negative) Urine Nitrate Negative (Negative) Urine Bilirubin 3+ H (Negative) Urine Urobilinogen 8 H (Negative) mg/dL Ur Leukocyte Vanessa ase Negative (Negative) Urine RBC 0-4 H (0-2) /hpf Urine WBC 10-15 H (0-5) /hpf Ur Squamous Epith Cells 0-4 H (0-5) /hpf Amorphous Sediment Not Reportable Urine Bacteria Trace (NONE) /hpf Hyaline Casts 5-10 H /lpf Coarse Granular Ca sts 5-10 H /lpf Serum Ketones (Negative) Discharge Plan Discharge Patient Disposition: Placed in Observation Admit Provider: Placido Prasad Clinical Impression: Hyperbilirubinemia, Hx of hepatitis C, Thrombocytopenia, Essential hypertension, Hyponatremia Coding Level of Care Code ED Data Warehouse Architect for Caroline Watt
--- NOTE | 2020-12-15 15:27 | PC.PHAR ---
pt states she takes care of her own medications-pt states she is taking hctz and kcl-pt states saeed was dced ext med history shows last filled on 11/25/20 90d/s-pt states she takes [id number],vit d, vit a, vit b, vit c, vit e, multivitamin and coq10 prn and states she stop taking them 2 days ago
--- NOTE | 2020-12-15 15:31 | PC.NURSE ---
LABS DRAWN OFF IV SITE IN RIGHT HAND.
[2020-12-15] MEDS: piperacillin-tazobactam 3.375 GM in sodium chloride 0.9% (plus) 50 ML IV (15:34)
[2020-12-15 15:43] LABS: Basophils % 0.4 %; Eosinophils # 0.1 10^3/uL (0.0-0.8); Eosinophils % 1.5 %; Hemoglobin 11.8 g/dL (11.5-15.3); Lymphocytes # 1.2 10^3/uL (0.8-4.8); Lymphocytes % 16.6 %; Mean Corpuscular HGB Conc 34.7 g/dL (30.0-36.0); Mean Corpuscular Hemoglobin 34.9 pg (28.0-34.0); Mean Corpuscular Volume 100.6 fL (81-99); Mean Platelet Volume 9.8 fL (7.4-10.4); Monocytes # 0.9 10^3/uL (0.2-0.9); Monocytes % 11.9 %; Neutrophils # 5.07 10^3/uL (1.8-7.7); Neutrophils % 68.3 %; Nucleated Red Blood Cells % 0.3 %; Platelet Count 79 10^3/cmm (130-400); Red Blood Count 3.38 10^6/uL (4.1-5.3); Red Cell Distribution Width 17.2 % (12.1-15.1); White Blood Count 7.4 10^3/uL (4.0-10.0)
[2020-12-15 16:23] LABS: Ketone (Acetest) Serum Negative (Negative)
[2020-12-15 16:33] LABS: Alanine Aminotransferase 56 U/L (0-33); Albumin Level 2.4 g/dL (3.5-5.2); Alkaline Phosphatase 215 IU/L (35-105); Anion Gap 12.6 (5-19); Aspartate Amino Transferase 184 U/L (0-32); Blood Urea Nitrogen 20 mg/dL (8-23); Calcium 8.3 mg/dL (8.5-10.5); Carbon Dioxide 27 mmol/L (22-29); Chloride 94 mmol/L (98-107); Glucose 145 mg/dL (65-115); Lipase 40 U/L (13-60); Osmolality Calculated 275 mOsm/kg (285-295); Potassium 3.6 mmol/L (3.5-5.1); Sodium 130 mmol/L (136-145); Total Protein 5.4 g/dL (6.6-8.7)
[2020-12-15 16:34] LABS: Lactic Sepsis W/Reflex 2.6 mmol/L (0.5-2.2)
[2020-12-15 16:35] LABS: Add Urine Microscopic? YES; Bilirubin Urine 3+ (Negative); Blood Urine 3+ (Negative); Glucose Urine UA Norm (Normal); Ketones Urine Negative (Negative); Leukocyte Esterase Urine Negative (Negative); Nitrate Urine Negative (Negative); Protein Urine Neg (Negative); Specific Gravity, Urine 1.015 (1.005-1.030); Urine Appearance Clear (CLEAR); Urine Color Amber (Yellow); Urobilinogen Urine 8 mg/dL (Negative); pH Urine 5 (5-7)
[2020-12-15 16:36] LABS: Bacteria Urine TRACE /hpf; RBC Urine 0-4 /hpf (0-2); Squamous Epithelial Cell Urine 0-4 /hpf (0-5)
[2020-12-15 16:38] LABS: Add Urine Culture? No
[2020-12-15 16:39] LABS: Creatinine Clr Calc Pharmacy 70.3679
[2020-12-15 16:40] LABS: Total Bilirubin 23.3 mg/dL (0.15-1.2)
[2020-12-15 16:46] LABS: Ammonia 55 umol/L (11-51)
[2020-12-15 17:25] LABS: Reflex Lactate Order REFLEX LACTIC ORDERD
[2020-12-15 17:34] LABS: INR 1.88 (0.8-1.2)
[2020-12-15 17:36] LABS: Partial Thromboplastin Time 47.8 SECONDS (23.9-36.7)
[2020-12-15 17:39] VITALS: BP 118/66; PULSE 92; RESP 18; O2SAT 92
[2020-12-15] MEDS: cefTRIAXone 1,000 MG in sodium chloride 0.9% (plus) 50 ML 100 MG IV (18:46)
[2020-12-15] MEDS: sodium chlor 0.9% + KCl 20 mEq 20 MEQ/1,000 ML BAG 125 MEQ IV (18:47)
[2020-12-15 19:02] LABS: Lactic Acid level (Lactate) 2.1 mmol/L (0.5-2.2)
--- NOTE | 2020-12-15 19:38 | P.HP_ITS ---
Providers/Chief Complaint Admitting Physician: Placido Prasad MD Primary Care Provider: Scarlet Padgett MD Chief Complaint: SENT BY DR JOHNS FOR LIVER TESTS History of Present Illness Morena Valente is a 70 year old female who was diagnosed with liver disease about 4 years ago. Evaluations according to the patient revealed cirrhosis. She was found to have hepatitis B virus and hepatitis C virus. She was under observation since then. Several days ago she was told by her friends that she looked yellowish. She was seen by Dr. Johns in the office today and was found to have extremely elevated bilirubin level. She was directed to the emergency room. The patient reports generalized fatigue. She also reports increased abdominal distention. She reports that her stool and urine looked yellowish and dark. She denies any specific dysuria or any abdominal pain. Denies nausea or vomiting but reports decreased appetite. Denies fever or chills. No chest pain, shortness of breath, cough, palpitations. She reports that she stopped drinking about 2 months ago. Before that she was drinking small amounts but more regularly. Denies drugs and tobacco. [facility] was called by ER physician and the patient was accepted. Accepting physician follows Dr. Pompa. However currently they do not have any beds. He requested that we keep the patient until they have a bed available. No specific treatments just hydration. The patient already received fluids and antibiotics in the emergency room. She reports feeling much better now. Currently she denies any active complaints. Review of Systems General: Reports: 10 or more systems reviewed and unremarkable except in HPI and below Medications/Allergies Home Medications Medication Instructions Recorded Confirmed Last Taken Type albuterol sulfate 90 mcg/actuation 2 puff INHALATION Q6H PRN #18 g 09/15/20 12/15/20 Unknown Rx aerosol inhaler Vitamin B-12 1 tab PO PRN 12/15/20 12/15/20 12/12/20 History Vitamin C 1 tab PO PRN 12/15/20 12/15/20 12/12/20 History Vitamin D3 1 cap PO PRN 12/15/20 12/15/20 12/12/20 History calcium carb-D3-mag ox-zinc ox 1 tab PO PRN 12/15/20 12/15/20 12/12/20 History [Erasmo Mag Zinc Plus D3] coenzyme Q10 [CoQ-10] 100 mg PO PRN 12/15/20 12/15/20 12/12/20 History hydrochlorothiazide 25 mg PO QAM 12/15/20 12/15/20 12/15/20 11:00 History multivitamin 1 tab PO PRN 12/15/20 12/15/20 12/12/20 History potassium chloride 10 meq PO QAM 12/15/20 12/15/20 12/15/20 History vitamin A 1 cap PO PRN 12/15/20 12/15/20 12/12/20 History vitamin E 1 cap PO PRN 12/15/20 12/15/20 12/12/20 History Allergies Allergy/AdvReac Type Severity Reaction Status Date / Time morphine Allergy ADR-Irritab Verified 12/15/20 15:27 le morazone AdvReac itching Verified 09/15/20 13:07 and burning PFSH Acute 2 PFSH: Medical History Chronic diastolic congestive heart failure 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) Hx of hepatitis C Hyperglycemia Hypertension, benign Oral lichen planus Primary osteoarthritis of right knee Stroke-like episode Thrombocytopenia Surgical History H/O: hysterectomy History of cataract surgery Hx of tonsillectomy Total knee replacement status Family History Sister Heart disease Family/Other Heart disease Social History Smoking and tobacco status: former smoker Alcohol intake: current Alcohol intake frequency: few times a month History of recent travel: No Vitals/I&O/Wt Last Vital Signs Temp 97.6 F 12/15/20 13:58 Pulse 92 12/15/20 17:39 Resp 18 12/15/20 17:39 BP 118/66 12/15/20 17:39 Pulse Ox 92 12/15/20 17:39 12/15/20 12/15/20 12/15/20 06:59 14:59 22:59 Intake Total 50 / 50 Balance 50 / 50 Weight last 48 hrs Weight 89.811 kg Physical Exam Narrative: EXAM NARRATIVE: The patient is awake alert oriented. No acute distress. Mood and affect are appropriate. Responses are adequate. Skin is warm and dry. Severe jaundice. Eyes PERRL, extraocular muscles are intact. Icterus is present. Neck supple. No JVD Lungs are clear to auscultation bilaterally no wheezes or crackles no respiratory distress Heart S1, S2, regular Abdomen soft, distended, nontender, bowel sounds are present. No guarding or rebound. Extremities. Bilateral pedal edema. No cyanosis no calf tenderness bilaterally Neuro examination is nonfocal. Normal speech. Data : 12/15/20 15:25 12/15/20 15:25 Other Labs: Laboratory Results WBC 7.4 10^3/uL (4.0-10.0) 12/15/20 15:25 RBC 3.38 10^6/uL (4.1-5.3) L 12/15/20 15:25 Hgb 11.8 g/dL (11.5-15.3) 12/15/20 15:25 Hct 34.0 % (37.0-47.0) L 12/15/20 15:25 MCV 100.6 fL (81-99) H 12/15/20 15:25 MCH 34.9 pg (28.0-34.0) H 12/15/20 15:25 MCHC 34.7 g/dL (30.0-36.0) 12/15/20 15:25 RDW 17.2 % (12.1-15.1) H 12/15/20 15:25 Plt Count 79 10^3/cmm (130-400) L 12/15/20 15:25 MPV 9.8 fL (7.4-10.4) 12/15/20 15:25 Neut % (Auto) 68.3 % 12/15/20 15:25 Lymph % (Auto) 16.6 % 12/15/20 15:25 Page % (Auto) 11.9 % 12/15/20 15:25 Eos % (Auto) 1.5 % 12/15/20 15:25 Baso % (Auto) 0.4 % 12/15/20 15:25 Neut # (Auto) 5.07 10^3/uL (1.8-7.7) 12/15/20 15:25 Lymph # (Auto) 1.2 10^3/uL (0.8-4.8) 12/15/20 15:25 Page # (Auto) 0.9 10^3/uL (0.2-0.9) 12/15/20 15:25 Eos # (Auto) 0.1 10^3/uL (0.0-0.8) 12/15/20 15:25 Baso # (Auto) 0.0 10^3/uL (0.0-0.1) 12/15/20 15:25 Nucleated RBC % (auto) 0.3 % 12/15/20 15:25 Nucleated RBCs # 0.0 /100WBC 12/15/20 15:25 PT 22.30 SECONDS (12.1-14.9) H 12/15/20 15:25 INR 1.88 (0.8-1.2) H 12/15/20 15:25 APTT 47.8 SECONDS (23.9-36.7) H 12/15/20 15:25 Sodium 130 mmol/L (136-145) L 12/15/20 15:25 Potassium 3.6 mmol/L (3.5-5.1) 12/15/20 15:25 Chloride 94 mmol/L (98-107) L 12/15/20 15:25 Carbon Dioxide 27 mmol/L (22-29) 12/15/20 15:25 Anion Gap 12.6 (5-19) 12/15/20 15:25 BUN 20 mg/dL (8-23) 12/15/20 15:25 Creatinine 0.2 mg/dL (0.5-0.9) L 12/15/20 15:25 GFR Calculation Not Reportable 12/15/20 15:25 Glucose 145 mg/dL (65-115) H 12/15/20 15:25 Calculated Osmolality 275 mOsm/kg (285-295) L 12/15/20 15:25 Lactic Acid 2.6 mmol/L (0.5-2.2) H 12/15/20 15:25 Lactic Acid (Sepsis) 2.1 mmol/L (0.5-2.2) 12/15/20 18:30 Calcium 8.3 mg/dL (8.5-10.5) L 12/15/20 15:25 Magnesium 2.0 mg/dL (1.7-2.3) 12/15/20 15:25 Total Bilirubin 23.3 mg/dL (0.15-1.2) H* 12/15/20 15:25 AST 184 U/L (0-32) H 12/15/20 15:25 ALT 56 U/L (0-33) H 12/15/20 15:25 Alkaline Phosphatase 215 IU/L (35-105) H 12/15/20 15:25 Ammonia 55 umol/L (11-51) H 12/15/20 15:25 Total Protein 5.4 g/dL (6.6-8.7) L 12/15/20 15:25 Albumin 2.4 g/dL (3.5-5.2) L 12/15/20 15:25 Globulin 3.0 g/dL (1.3-4.6) 12/15/20 15:25 Lipase 40 U/L (13-60) 12/15/20 15:25 Urine Color Karolina (Yellow) 12/15/20 15:59 Urine Appearance Clear (CLEAR) 12/15/20 15:59 Urine pH 5 (5-7) 12/15/20 15:59 Ur Specific [place] 1.015 (1.005-1.030) 12/15/20 15:59 Urine Protein Neg (Negative) 12/15/20 15:59 Urine Glucose (UA) Norm (Normal) 12/15/20 15:59 Urine Ketones Negative (Negative) 12/15/20 15:59 Urine Blood 3+ (Negative) H 12/15/20 15:59 Urine Nitrate Negative (Negative) 12/15/20 15:59 Urine Bilirubin 3+ (Negative) H 12/15/20 15:59 Urine Urobilinogen 8 mg/dL (Negative) H 12/15/20 15:59 Ur Leukocyte Esterase Negative (Negative) 12/15/20 15:59 Urine RBC 0-4 /hpf (0-2) H 12/15/20 15:59 Urine WBC 10-15 /hpf (0-5) H 12/15/20 15:59 Ur Squamous Epith Cells 0-4 /hpf (0-5) H 12/15/20 15:59 Amorphous Sediment Not Reportable 12/15/20 15:59 Urine Bacteria Trace /hpf (NONE) 12/15/20 15:59 Hyaline Casts 5-10 /lpf H 12/15/20 15:59 Coarse Granular Casts 5-10 /lpf H 12/15/20 15:59 Serum Ketones Negative (Negative) 12/15/20 15:25 Impressions Gallbladder Ultrasound 12/15/20 14:28 IMPRESSION: 1. Hepatomegaly with cirrhotic liver. 2. Reversed flow in the main portal vein consistent with portal venous hypertension 3. Mild gallbladder wall thickening likely due to liver disease. Trace sludge in the gallbladder. 4. Normal right kidney Micro: Microbiology 12/15/20 15:30 Blood Culture - Preliminary Blood SPECIMEN COLLECTED 12/15/20 15:25 Blood Culture - Preliminary Blood SPECIMEN COLLECTED A&P Additional A&P Information 70-year-old female with past medical history of liver cirrhosis, history of alcohol, hepatitis B virus and hepatitis C virus who is being admitted for observation due to increased jaundice secondary to advancing liver disease/liver failure. She is accepted to [facility] pending available bed. Accepting physician Dr. Pompa. Decompensated liver cirrhosis. We will monitor the patient in MedSurg. We will hydrate gently. We will monitor and replace electrolytes. Will order lactulose to avoid hepatic encephalopathy. No evidence of bleeding at this time. No convincing evidence of SBP. The patient received antibiotics in ER due to py uria. We will continue antibiotics and recheck her procalcitonin and UA again. If the tests are negative we will stop the antibiotics. Thrombocytopenia and coagulopathy. Chronic and stable. Continue close monitoring. DVT prophylaxis. Teds and SCDs. No anticoagulation due to thrombocytopenia. Hyponatremia due to liver disease. Mild. Continue monitoring. CODE STATUS. She wants to be full code. The plan of care was discussed with the patient. She verbalized understanding and agreement. Attestations Medical Necessity Statement*: Observation Coding Level of Care Code Acute Licensed Land Surveyor for Caroline Watt
[2020-12-15 19:43] VITALS: BP 117/65; PULSE 98; RESP 16; O2SAT 94
--- NOTE | 2020-12-15 19:47 | PC.NURSE ---
No PCT to assist with getting pts to floor at this time.
[2020-12-15 20:09] VITALS: BP 127/75; PULSE 91; RESP 17; TEMP 36.6; O2SAT 91
[2020-12-15] MEDS: lactulose oral liq 20 gm/30 mL UDC 30 GM PO (20:55)
[2020-12-15] MEDS: dextrose 5%-sod chloride 0.45% 1,000 ML 75 ML IV (20:55)
--- NOTE | 2020-12-15 21:12 | PC.NURSE ---
Patient has jaundice of the skin and of the sclera.
[2020-12-15 21:20] VITALS: PULSE 90; RESP 18; O2SAT 93
[2020-12-16] VITALS (9 sets, daily range): BP systolic 109–161; BP diastolic 61–77; PULSE 64–109; RESP 16–18; TEMP 36.6–38.3; O2SAT 90–95
[2020-12-16 01:16] LABS: Bilirubin Urine 3+ (Negative); Blood Urine 3+ (Negative); Glucose Urine UA Norm (Normal); Ketones Urine Negative (Negative); Leukocyte Esterase Urine 1+ (Negative); Nitrate Urine Negative (Negative); Protein Urine Trace (Negative); Specific Gravity, Urine 1.015 (1.005-1.030); Urine Appearance SL Hazy (CLEAR); Urine Color Brown (Yellow); Urobilinogen Urine 4 mg/dL (Negative); pH Urine 5 (5-7)
[2020-12-16 01:23] LABS: RBC Urine 25-40 /hpf (0-2)
[2020-12-16 01:24] LABS: Add Urine Culture? Yes; Bacteria Urine 1+ /hpf; Squamous Epithelial Cell Urine 0-4 /hpf (0-5)
[2020-12-16] MEDS: cefTRIAXone 1,000 MG in sodium chloride 0.9% (plus) 50 ML 100 MG IV (05:05)
[2020-12-16 06:22] LABS: Basophils % 0.4 %; Eosinophils # 0.2 10^3/uL (0.0-0.8); Eosinophils % 4.4 %; Hematocrit 29.3 % (37.0-47.0); Hemoglobin 10.2 g/dL (11.5-15.3); Lymphocytes # 0.9 10^3/uL (0.8-4.8); Lymphocytes % 16.3 %; Mean Corpuscular HGB Conc 34.8 g/dL (30.0-36.0); Mean Corpuscular Hemoglobin 34.6 pg (28.0-34.0); Mean Corpuscular Volume 99.3 fL (81-99); Mean Platelet Volume 9.7 fL (7.4-10.4); Monocytes # 0.7 10^3/uL (0.2-0.9); Monocytes % 12.5 %; Neutrophils # 3.44 10^3/uL (1.8-7.7); Neutrophils % 65.3 %; Nucleated Red Blood Cells % 0 %; Platelet Count 62 10^3/cmm (130-400); Red Blood Count 2.95 10^6/uL (4.1-5.3); Red Cell Distribution Width 17.1 % (12.1-15.1); White Blood Count 5.3 10^3/uL (4.0-10.0)
[2020-12-16 06:43] LABS: Alanine Aminotransferase 47 U/L (0-33); Albumin Level 2.1 g/dL (3.5-5.2); Alkaline Phosphatase 181 IU/L (35-105); Anion Gap 10.8 (5-19); Aspartate Amino Transferase 151 U/L (0-32); Blood Urea Nitrogen 19 mg/dL (8-23); Calcium 7.8 mg/dL (8.5-10.5); Carbon Dioxide 25 mmol/L (22-29); Chloride 96 mmol/L (98-107); Creatinine Clr Calc Pharmacy 70.3679; Globulin 2.5 g/dL (1.3-4.6); Glucose 109 mg/dL (65-115); Osmolality Calculated 271 mOsm/kg (285-295); Sodium 129 mmol/L (136-145); Total Protein 4.6 g/dL (6.6-8.7)
[2020-12-16 06:48] LABS: Procalcitonin 0.58 ng/mL (0-0.5)
[2020-12-16 07:01] LABS: Magnesium 1.9 mg/dL (1.7-2.3); Thyroid Stimulating Hormone 2.11 uIU/mL (0.27-4.20)
[2020-12-16 07:20] LABS: Potassium 2.8 mmol/L (3.5-5.1); Total Bilirubin 21.5 mg/dL (0.15-1.2)
[2020-12-16] MEDS: potassium chloride ER 20 mEq Tablet 40 MEQ PO ×2 (08:32→16:04)
[2020-12-16] MEDS: thiamine 100 mg Tablet PO (08:32)
[2020-12-16] MEDS: lactulose oral liq 20 gm/30 mL UDC 30 GM PO ×2 (08:33→16:04)
[2020-12-16] MEDS: dextrose 5%-ns + KCl 20 20 MEQ/1,000 ML BAG 75 MEQ IV (12:16)
--- NOTE | 2020-12-16 16:39 | PM.PN ---
Subjective Subjective: Interval history: Admitted overnight. H&P and labs noted. On examination lying comfortably in bed. States she is feeling better. Denies any nausea, vomiting, bleeding. Awaiting bed at [facility]. Vitals/I&O/Wt Last Vital Signs Temp 98.7 F 12/16/20 16:00 Pulse 90 12/16/20 16:00 Resp 17 12/16/20 16:00 BP 133/70 12/16/20 16:00 Pulse Ox 92 12/16/20 16:00 12/16/20 12/16/20 12/16/20 06:59 14:59 22:59 Intake Total 50 / 2390 1720 / 1720 Output Total 400 / 400 Balance -1989 1720 / 1720 Weight last 48 hrs Weight 89.811 kg Physical Exam Narrative: EXAM NARRATIVE: The patient is awake alert oriented. No acute distress. Mood and affect are appropriate. Responses are adequate. Skin is warm and dry. Severe jaundice. Eyes PERRL, extraocular muscles are intact. Icterus is present. Neck supple. No JVD Lungs are clear to auscultation bilaterally no wheezes or crackles no respiratory distress Heart S1, S2, regular Abdomen soft, distended, nontender, bowel sounds are present. No guarding or rebound. Extremities. Bilateral pedal edema. No cyanosis no calf tenderness bilaterally Neuro examination is nonfocal. Normal speech. 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 She is accepted to [facility] pending available bed. Accepting physician Dr. Ruediger. Decompensated liver cirrhosis: Continue with gentle hydration. Continue lactulose to avoid hepatic encephalopathy. No convincing signs or evidence of SBP. We will continue to monitor while patient awaits bed at [facility]. Continue to hold off on antibiotics for now as chances of infections are very low. Thrombocytopenia and coagulopathy. Chronic and stable. Continue close monitoring. DVT prophylaxis. Teds and SCDs. No anticoagulation due to thrombocytopenia. Hyponatremia: Most likely because of liver disease. Switch fluids to D5 NS with 20 mEq potassium. Replace potassium for hypokalemia with oral potassium. CODE STATUS. She wants to be full code. The plan of care was discussed with the patient. She verbalized understanding and agreement. 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
--- NOTE | 2020-12-17 23:40 | P.TS_ITS ---
Transfer Summary Providers Date of Admission: 12/15/20 18:40 Date of Discharge: 12/17/20 Attending Provider at Admission: Placido Prasad MD Attending Provider at Transfer: Placido Prasad MD Primary Care Provider: Scarlet Padgett MD Anticipated Date of Transfer: Anticipated date of transfer: 12/17/20 Receiving Facility & Provider: Receiving Provider: [Dr. 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 Morena Valente is a 70 year old female who was diagnosed with liver disease about 4 years ago. Evaluations according to the patient revealed cirrhosis. She was found to have hepatitis B virus and hepatitis C virus. She was under observation since then. Several days ago she was told by her friends that she looked yellowish. She was seen by Dr. Johns in the office today and was found to have extremely elevated bilirubin level. She was directed to the emergency room. The patient reports generalized fatigue. She also reports increased abdominal distention. She reports that her stool and urine looked yellowish and dark. She denies any specific dysuria or any abdominal pain. Denies nausea or vomiting but reports decreased appetite. Denies fever or chills. No chest pain, shortness of breath, cough, palpitations. She reports that she stopped drinking about 2 months ago. Before that she was drinking small amounts but more regularly. Denies drugs and tobacco. [facility] was called by ER physician and the patient was accepted. Accepting physician follows Dr. Pompa. However currently they do not have any beds. He requested that we keep the patient until they have a bed available. No specific treatments just hydration. The patient already received fluids and antibiotics in the emergency room. She reports feeling much better now. Currently she denies any active complaints. Hospital stay was uneventful. Physical Exam Narrative: EXAM NARRATIVE: Transferred before could be seen TS Data Data Completed and Pending: Completed Studies During Hospitalization Category Date Time Status US gall bladder [id number] Stat Ultrasound 12/15/20 14:28 Completed Pending at discharge Category Date Time Status Blood Culture Sta t Lab 12/15/20 15:30 Results Urine Culture [facility] 12/16/20 01:04 Results Vitals: Last Vital Signs Temp 97.9 F 12/16/20 19:40 Pulse 82 12/16/20 20:47 Resp 17 12/16/20 20:47 BP 161/77 12/16/20 19:40 Pulse Ox 95 12/16/20 20:47 TS Medications Medications Home Medications albuterol sulfate 90 mcg/actuation aerosol inhaler 2 puff INHALATION Q6H PRN #18 g 09/15/20 [Rx Confirmed 12/15/20] Vitamin B-12 1 tab PO PRN 12/15/20 [History Confirmed 12/15/20] Vitamin C 1 tab PO PRN 12/15/20 [History Confirmed 12/15/20] Vitamin D3 1 cap PO PRN 12/15/20 [History Confirmed 12/15/20] calcium carb-D3-mag ox-zinc ox [Erasmo Mag Zinc Plus D3] 1 tab PO PRN 12/15/20 [History Confirmed 12/15/20] coenzyme Q10 [CoQ-10] 100 mg PO PRN 12/15/20 [History Confirmed 12/15/20] hydrochlorothiazide 25 mg PO QAM 12/15/20 [History Confirmed 12/15/20] multivitamin 1 tab PO PRN 12/15/20 [History Confirmed 12/15/20] potassium chloride 10 meq PO QAM 12/15/20 [History Confirmed 12/15/20] vitamin A 1 cap PO PRN 12/15/20 [History Confirmed 12/15/20] vitamin E 1 cap PO PRN 12/15/20 [History Confirmed 12/15/20] Discharge Plan Discharge Patient Disposition: Xfer Intermediate Care Fac Prescriptions: No Action albuterol sulfate 90 mcg/actuation HFA aerosol inhaler 2 puff inhalation Q6H PRN (Reason: shortness of breath or wheezing) Qty: 18 RF: 5 multivitamin Tablet 1 tab PO PRN RF: 0 CoQ-10 100 mg Capsule 100 mg PO PRN RF: 0 Erasmo Mag Zinc Plus D3 333 mg-133 unit -133 mg-5 mg Tablet 1 tab PO PRN RF: 0 Vitamin B-12 1 tab PO PRN RF: 0 Vitamin C 1 tab PO PRN RF: 0 Vitamin D3 1 cap PO PRN RF: 0 vitamin A 1 cap PO PRN RF: 0 vitamin E 1 cap PO PRN RF: 0 potassium chloride 10 mEq capsule, extended release 10 meq PO QAM RF: 0 hydrochlorothiazide 25 mg tablet 25 mg PO QAM RF: 0 Referrals: Scarlet Padgett MD [Primary Care Provider] - Patient Instructions: Opioid Safety Transfer Attestations Time Spent in Transfer Care*: greater than 30 min Specific Discharge Activities: Specific discharge activities: educating patient, educating and/or supporting family/caregiver, discussing with pcp/other providers, discussing with manager of case management/social workers/dc planners and evaluating patient/reviewing data Status at Transfer: Cognitive status at transfer: cognitively intact , Behavioral status at transfer: cooperative , Functional status at transfer: independent ambulation Overall status at transfer: patient is back to baseline Quality Metrics Clinical Quality Measures: During this hospital stay, did patient experience: None Coding Level of Care Code Acute Senior Art Director for [employer] Diagnoses Hyperbilirubinemia E80.6 Hyponatremia E87.1 Hypokalemia E87.6 History of hepatitis B virus infection Z86.19 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
== END 2020-12-16 20:35 | disposition intermediate care facility (04) ==
LOC: ER 14:28 → MEDSURG 19:11
PROVIDERS: Internal Medicine; Admitting Provider Student in an Organized Health Care Education/Training Program; Emergency Provider Family Medicine; PCP Family Medicine; Visit Provider Student in an Organized Health Care Education/Training Program
DX: E80.6 Other disorders of bilirubin metabolism (principal); E87.1 Hypo-osmolality and hyponatremia; E87.6 Hypokalemia; Z86.19 Personal history of other infectious and parasitic diseases; K74.69 Other cirrhosis of liver; B19.20 Unspecified viral hepatitis C without hepatic coma; I10 Essential (primary) hypertension
CPT/HCPCS: 36415; 76705; 80053; 81001; 82009; 82140; 83605; 83690; 83735; 84145; 84443; 85025; 85610; 85730; 87040; 87086; 96365; 96366; 96367; 96375; 99285; G0378; J0696; J2405; J2543; J7030; J7799